=== PATIENT | female | born 1980 | race Caucasian/White ===

== ENCOUNTER 2021-03-15 07:36 | Observation (INO) | payer MEDICAID ==
[2021-03-09 14:40] LABS: BASOPHILS % (AUTO) 0.5 % (0-1); EOSINOPHILS # (AUTO) 0.1 X10'3 (0-0.9); EOSINOPHILS % (AUTO) 1.4 % (0-6); LYMPHOCYTES # (AUTO) 2.6 X10'3 (1.1-4.8); MEAN CORPUSCULAR HEMOGLOBIN 30.3 PG (27.0-31.0); MEAN CORPUSCULAR HGB CONC 34.5 g/dL (33.0-36.5); MEAN CORPUSCULAR VOLUME 87.6 FL (78-98); MEAN PLATELET VOLUME 6.8 FL (7.4-10.4); MONOCYTES # (AUTO) 0.6 X10'3 (0-0.9); MONOCYTES % (AUTO) 7.1 % (2-12); NEUTROPHILS # (AUTO) 5.5 X10'3 (1.8-7.7); PRE OP HEMATOCRIT 40.9 % (35.0-45.0); PRE OP HEMOGLOBIN 14.1 g/dL (12.0-16.0); PRE OP PLATELET COUNT 423 X10'3 (140-440); RED BLOOD COUNT 4.66 X10'6 (4.20-5.60); RED CELL DISTRIBUTION WIDTH 12.6 % (11.5-14.5)
[2021-03-09 14:52] LABS: ALBUMIN 3.7 G/DL (3.4-5.0); ALKALINE PHOSPHATASE 97 IU/L (46-116); BLOOD UREA NITROGEN 17 MG/DL (7-18); BUN/CREATININE RATIO 17.7 (6.6-38.0); CALCIUM 8.7 MG/DL (8.5-10.1); CHLORIDE 106 MMOL/L (99-107); CREATININE 0.96 MG/DL (0.40-0.90); PRE OP ALT 33 U/L (30-65); PRE OP ANION GAP 9 (8-16); PRE OP AST 15 U/L (10-37); PRE OP BILIRUB, TOTAL 0.3 MG/DL (0.0-1.0); PRE OP GLUCOSE 98 MG/DL (70-104); PRE OP POTASSIUM 3.8 MMOL/L (3.4-5.1); PRE OP SODIUM 143 MMOL/L (135-145); TOTAL CARBON DIOXIDE 28.3 MMOL/L (24-32); TOTAL PROTEIN 7.5 G/DL (6.4-8.2); eGFR 65 ML/MIN
[2021-03-09 15:09] LABS: HCG SERUM QL NEGATIVE
[~2021-03-15] VITALS: Ht 154.9 cm; Wt 63.2 kg
[2021-03-15] VITALS (23 sets, daily range): BP systolic 98–117; BP diastolic 62–84
[~2021-03-15 07:36] MED LIST: ASPI-1397 PO; BUSP5TAB3 PO; [UNRECOGNIZED DRUG - OTHER]; ceFOXitin 2GM-NS 100mL ADDvant 100 ML IV ONE; famotidine 20mg tablet PO ONE; ringers solution, lacted 1,000 ML IV SCH
[2021-03-15] MEDS ORDERED: ringers solution, lacted 1,000 ML IV SCH (08:55)
[2021-03-15] MEDS ORDERED: ondansetron/PF 4mg/2ml inj IV PRN ×2 (08:55→13:15)
[2021-03-15] MEDS ORDERED: morphine 4 MG/ML inj SYRINge IV PRN (08:55)
[2021-03-15] MEDS ORDERED: proCHLORperazine 10 MG/2 ml inj IV PRN (08:55)
[2021-03-15] MEDS ORDERED: meperidine/PF 25mg/ml syringe IV PRN ×3 (08:55)
[2021-03-15] MEDS ORDERED: morphine 2 MG/ML inj. syringe IV PRN (08:55)
[2021-03-15] MEDS ORDERED: ceFAZolin 1000mg inj ONE (09:23)
[2021-03-15] MEDS ORDERED: BUPIVAcaine 0.5% inj/PF 30 ML ONE (09:24)
[2021-03-15] MEDS ORDERED: LIDOCAINE 1%/EPI 1:100,000 inj. 10 ML multi-dose vial ONE (09:24)
[2021-03-15] MEDS ORDERED: midazolam 1 mg/ML 2ml injection ONE (11:09)
[2021-03-15] MEDS ORDERED: propofol inj 20 ML IV ONE (11:24)
[2021-03-15] MEDS ORDERED: LIDOcaine 2% (20mg/ml) 5ml vial ONE (11:24)
[2021-03-15] MEDS ORDERED: fentaNYL /PF 50mcg/ml 5ml ampule ONE (11:24)
[2021-03-15] MEDS ORDERED: ondansetron/PF 4mg/2ml inj ONE (11:24)
[2021-03-15] MEDS ORDERED: BUPIVAcaine/PF 2.5 mg/ml (0.25%) 30ml vial IJ ONE (12:03)
[2021-03-15] MEDS ORDERED: ketorolac trometh. 30mg/ml inj. ONE (13:12)
[2021-03-15] MEDS ORDERED: oxyCODONE/APAP 5-325mg tablet PO PRN (13:15)
[2021-03-15] MEDS ORDERED: mag hydrox/Alum hydrox/simeth 30ml oral suspension PO PRN (13:15)
[2021-03-15] MEDS ORDERED: diphenhydrAMINE 50 mg/ml inj IV PRN (13:15)
[2021-03-15] MEDS ORDERED: naloxone 0.4 mg/ml inj IV PRN (13:15)
[2021-03-15] MEDS: ringers solution, lacted 1,000 ML IV SCH ×2 (13:15→22:56)
[2021-03-15] MEDS ORDERED: normal saline 500ML IV soln IV PRN (13:15)
[2021-03-15] MEDS ORDERED: ketorolac trometh. 30mg/ml inj. IV PRN (13:15)
[2021-03-15] MEDS ORDERED: LORazepam 2 mg/ml vial IV PRN (13:15)
[2021-03-15] MEDS ORDERED: temazepam 15mg capsule PO PRN (13:15)
[2021-03-15] MEDS ORDERED: CADD PCA waste documentation MC PRN (13:15)
[2021-03-15] MEDS ORDERED: busPIRone 5mg tablet PO PRN (13:20)
--- NOTE | 2021-03-15 13:28 | NUR ---
Received from OR via BED IN STABLE CONDITON , accompanied by Anesthesiologist and PHARMACY ASSOCIATE report given by PHARMACY ASSOCIATE AND Anesthesiolgist. Addendum: 03/15/21 at 1356 by Mora Dumont RN Amended: Links added.
[2021-03-15] MEDS: HYDROmorph./NS 0.2 mg/ml CADD 100 ML IV SCH ×5 (15:00→23:00)
--- NOTE | 2021-03-15 15:58 | NUR ---
PATIENT DISCHARGED FROM PACU IN STABLE CONDITION AFTER REPORT GIVEN TO RN TAKING OVER PATIENTS CARE. PATIENT TRANSFERRED VIA BED WITH RN X2 Addendum: 03/15/21 at 1618 by Mora Dumont RN Amended: Links added.
--- NOTE | 2021-03-15 16:00 | NUR ---
Pt has arrived to floor. No current distress. Pt on CADD, resting comfortably.
[2021-03-15] MEDS: simethicone 80mg chew tab PO SCH (18:15)
--- NOTE | 2021-03-15 18:40 | NUR ---
REPORT GIVEN TO LUBNA APPLE. PT COMFORTABLE IN BED. NO SIGNS OF DISTRESS OR BLEEDING
[2021-03-15] MEDS: docusate sod 100mg capsule PO SCH (21:18)
[2021-03-16] VITALS: BP 107/62
[2021-03-16] MEDS: HYDROmorph./NS 0.2 mg/ml CADD 100 ML IV SCH ×3 (01:00→05:00)
--- NOTE | 2021-03-16 01:41 | NUR ---
LATE ENTRY 03/16/21 2100 PT LYING IN BED . STATED SHE FELT DIZZY AND DID NOT WANT TO GET OOB AT THIS TIME
--- NOTE | 2021-03-16 01:42 | NUR ---
LATE ENTRY 03/15/21 2230 PT SAT ON EDGE OF BED AND BECAME DIZZY . ASSISTED BACK TO BED . WILL ATTEMPT AMBULATION ANOTHER TIME
--- NOTE | 2021-03-16 05:08 | NUR ---
Witnessed waste of dilaudid CANAL BOAT CAPTAIN 62ml with Brandt APPLE.
[2021-03-16] MEDS: ringers solution, lacted 1,000 ML IV SCH (05:15)
[2021-03-16] MEDS: oxyCODONE/APAP 5-325mg tablet PO PRN ×2 (05:51→10:20)
--- NOTE | 2021-03-16 06:01 | NUR ---
LAte entry migratory worker jackie dcd per md order . patton cath aslo discontined per md orderpt instructed to call nruse for assistnace to void. and instructed that we should monitor output
--- NOTE | 2021-03-16 06:30 | NUR ---
CADD Diluted DC'ed by NOC nurse Cathy APPLE traveler and Waste was not reported appropriately on the emar. Spoke to charge Nurse Esmer, she had witness the waste, she stated that her and NOC nurse will record the waste and DC order appropriately. Pharmacy, [facility], was also notified and she agreed to wait until tonight so it can be fixed.
--- NOTE | 2021-03-16 06:30 | NUR ---
Patient in room [facility]. I have received report from Cathy APPLE Traveler and had the opportunity to ask questions and assume patient care.
[2021-03-16 07:06] LABS: BASOPHILS % (AUTO) 0.2 % (0-1); EOSINOPHILS % (AUTO) 0 % (0-6); HEMATOCRIT 36.5 % (35.0-45.0); HEMOGLOBIN 12.2 g/dl (12.0-16.0); LYMPHOCYTES # (AUTO) 1.5 X10'3 (1.1-4.8); LYMPHOCYTES % (AUTO) 8.3 % (21-51); MEAN CORPUSCULAR HEMOGLOBIN 29.8 PG (27.0-31.0); MEAN CORPUSCULAR HGB CONC 33.6 g/dL (33.0-36.5); MEAN CORPUSCULAR VOLUME 88.7 FL (78-98); MEAN PLATELET VOLUME 7.1 FL (7.4-10.4); MONOCYTES # (AUTO) 1.2 X10'3 (0-0.9); NEUTROPHILS # (AUTO) 14.9 X10'3 (1.8-7.7); NEUTROPHILS % (AUTO) 84.5 % (42-75); PLATELET COUNT 379 X10'3 (140-440); RED BLOOD COUNT 4.11 X10'6 (4.20-5.60); WHITE BLOOD COUNT 17.6 X10'3 (4.5-11.0)
[2021-03-16 07:08] LABS: ALBUMIN 2.9 G/DL (3.4-5.0); ANION GAP 6 (8-16); BLOOD UREA NITROGEN 11 MG/DL (7-18); BUN/CREATININE RATIO 14.1 (6.6-38.0); CALCIUM 7.9 MG/DL (8.5-10.1); CHLORIDE 103 MMOL/L (99-107); CREATININE 0.78 MG/DL (0.40-0.90); GLUCOSE 105 MG/DL (70-104); POTASSIUM 3.8 MMOL/L (3.5-5.1); SODIUM 134 MMOL/L (135-145); eGFR 83 ML/MIN
[2021-03-16] MEDS: simethicone 80mg chew tab PO SCH ×2 (07:49→12:43)
[2021-03-16] MEDS: docusate sod 100mg capsule PO SCH (07:49)
[2021-03-16 08:00] VITALS: BP 98/58
[2021-03-16 10:15] VITALS: BP 100/65
[2021-03-16 11:00] VITALS: BP 101/62
--- NOTE | 2021-03-16 14:30 | NUR ---
Pt DC to home with . pt is A&O x4 and in no apparent distress. pt verbalizes understanding of ALL DC orders and understands the importance of following up with Dr Mariano. Pt has all her medications from Pre-op ready so there is no need for any meds on DC. Pt's IV removed intact. pt packed her belongings, and was wheeled to the front where her picked her up.
== END 2021-03-16 14:30 | disposition home or self-care (01) ==
LOC: PAS 07:36 → UNDOADMOB 13:15 → SUR 3N 13:15 → UNDODISOB 03-16 14:30
PROVIDERS: ADMIT Obstetrics & Gynecology; ATTEND Obstetrics & Gynecology
DX: N92.0 Excessive and frequent menstruation with regular cycle (principal); Z20.822 Contact with and (suspected) exposure to COVID-19; N83.01 Follicular cyst of right ovary; N80.3 Endometriosis of pelvic peritoneum
CPT/HCPCS: 36415; 52000; 58552; 58563; 80048; 80053; 82948; 84703; 85025; 86885; 86900; 86901; 93005; 96374; 96375; C1758; G0378; J0690; J0694; J1885; J2001; J2175; J2250; J2405; J2704; J3010; J3490; J7120; U0003; U0005; A4355; A4618; A6250; A7000